=== PATIENT | female | born 1935 | race African-American/Black ===

== ENCOUNTER 2019-04-09 16:35 | Inpatient (IN) | payer MEDICARE, MEDICAID ==
[~2019-04-09] VITALS: Ht 162.6 cm; Wt 67.6 kg
[~2019-04-09 16:35] MED LIST: ACET-3161 GT; APIX2.5T; ATEN50TA PO; ATOR10TA69 PO; CARV6.2548 PO; FERR-63 PO; FURO-152 PO; METO-539 PO; METO5TAB7 PO; MULT-1146 PO; OLME40TA11 PO; POTA10TA15 PO; RIVA10TA PO
[2019-04-09] MEDS ORDERED: ACETAMINOPHEN 500MG TABLET PO ONE (21:30)
[2019-04-09] MEDS ORDERED: AMPICILLIN SOD/SULBACTAM NA 3 G in SODIUM CHLORIDE 0.9% 100 ML IV ONE (21:30)
[2019-04-09] MEDS ORDERED: MAGNESIUM/ALUMINUM HYDROXIDE/SIMETHICONE 30ML UDC PO PRN (23:15)
[2019-04-09] MEDS ORDERED: IPRATROPIUM/ALBUTEROL 0.5-3(2.5)MG/3ML NEB NEB PRN (23:15)
[2019-04-09] MEDS ORDERED: PIPERACILLIN/TAZ 3.375G PREMIX 50 ML IV SCH (23:15)
[2019-04-09] MEDS ORDERED: HYDROCODONE/ACETAMINOPHEN 5/325MG TABLET PO PRN (23:15)
[2019-04-09] MEDS ORDERED: ONDANSETRON HCL 4MG/2ML INJ IV PRN (23:15)
[2019-04-09] MEDS ORDERED: DOCUSATE SODIUM 100MG CAPSULE PO PRN (23:15)
[2019-04-09] MEDS ORDERED: CLONIDINE 0.1MG TABLET PO PRN (23:15)
[2019-04-09 23:48] LABS: HEMATOCRIT 24.4 % (36.0-48.0); HEMOGLOBIN 7.6 g/dL (12.0-16.0); MEAN CORPUSCULAR HEMOGLOBIN 28.2 pg (28.0-32.0); MEAN CORPUSCULAR VOLUME 90.8 fL (81.0-99.0); PLATELET 180 x1000/uL (130-400); RED BLOOD CELL COUNT 2.69 mill/uL (4.2-5.4); RED CELL DISTRIBUTION WIDTH 16.4 % (11.6-14.6)
[2019-04-09 23:55] LABS: CHLORIDE 118 mEq/L (98-107)
[2019-04-09 23:58] LABS: CLARITY URINE CLOUDY (CLEAR); COLOR URINE YELLOW (YELLOW); KETONES URINE NEGATIVE (NEGATIVE); LEUKOCYTE ESTERASE URINE TRACE (NEGATIVE); NITRITE URINE NEGATIVE (NEGATIVE); OCCULT BLOOD URINE 1+ (NEGATIVE); PROTEIN URINE 2+ (NEGATIVE); SPECIFIC GRAVITY URINE 1.013 (1.005-1.030); UROBILINOGEN URINE 0.2 E.U./dL (0.2-1.0)
[2019-04-10 03:00] VITALS: BP 112/70
[2019-04-10 03:28] VITALS: BP 112/70
[2019-04-10 08:00] VITALS: BP 123/62
[2019-04-10] MEDS: PIPERACILLIN/TAZOBACTAM 2.25 G in DEXTROSE 5% WATER 50 ML IV SCH ×3 (08:44→23:15)
[2019-04-10] MEDS ORDERED: ENOXAPARIN 30MG/0.3ML SYR SUBCUT SCH (09:00)
[2019-04-10 09:15] LABS: CREATINE KINASE MB FRACTION 1.1 ng/mL (0.5-3.6)
[2019-04-10] MEDS: ACETAMINOPHEN 325MG TABLET PO PRN ×3 (10:17→23:19)
[2019-04-10] MEDS: SODIUM CHLORIDE 0.45% 1,000 ML IV SCH (11:16)
[2019-04-10 11:35] LABS: BG BASE EXCESS -12.3 mmol/L (-2.0-2.0); BG CARBOXYHEMOGLOBIN 1.2 % (0.5-1.5); BG DEOXYHEMOGLOBIN 3.1 % (0.0-5.0); BG FRACTION INSPIRED OXYGEN 21; BG HCO3 ACT 13.1 mmol/L (22.0-26.0); BG METHEMOGLOBIN 0.3 % (0.0-1.5); BG OXYGEN SATURATION 96.9 % (92.0-98.5); BG OXYHEMOGLOBIN 95.4 % (94.0-97.0); BG PCO2 27.9 mmHg (35.0-45.0); BG PH 7.291 (7.350-7.450); BG PO2 107.7 mmHg (75.0-100.0); BG SAMPLE SITE RIGHT BRACHIAL; BG TOTAL HEMOGLOBIN 6.6 g/dL (12.0-18.0); BG VENT MODE ROOM AIR
[2019-04-10 12:00] VITALS: BP 106/50
[2019-04-10] MEDS: CITRIC ACID/SODIUM CITRATE SOLN 30ML UDC PO SCH ×2 (13:14→16:31)
[2019-04-10 14:11] LABS: CREATINE KINASE MB FRACTION 1.6 ng/mL (0.5-3.6)
[2019-04-10] MEDS ORDERED: BARIUM SULFATE 450ML ORAL SUSP PO SCH (14:15)
[2019-04-10 14:52] LABS: FOLIC ACID (FOLATE) SERUM 13.8 ng/mL (>5.38)
[2019-04-10 16:00] VITALS: BP 106/61
[2019-04-10 20:00] VITALS: BP 102/57
[2019-04-10] MEDS: CARVEDILOL 6.25 MG TABLET PO SCH (21:00)
[2019-04-10] MEDS: ATORVASTATIN CALCIUM 10MG TABLET PO SCH (21:18)
[2019-04-11] VITALS (8 sets, daily range): BP systolic 100–123; BP diastolic 51–74
[2019-04-11] MEDS: SODIUM CHLORIDE 0.45% 1,000 ML IV SCH (06:51)
[2019-04-11 07:08] LABS: BASOPHILS % 0.5 % (0.0-2.0); EOSINOPHILS % 0.8 % (0.0-5.0); HEMATOCRIT. 21.7 % (36.0-48.0); LYMPHOCYTES % 10.4 % (20.0-50.0); MEAN CORPUSCULAR HEMOGLOBIN 28.4 pg (28.0-32.0); MEAN CORPUSCULAR VOLUME 90.3 fL (81.0-99.0); MEAN PLATELET VOLUME 9.7 fl (7.4-10.4); MONOCYTES % 6.5 % (2.0-8.0); NEUTROPHILS % 81.8 % (40.0-76.0); PLATELET 181 x1000/uL (130-400); RED BLOOD CELL COUNT 2.41 mill/uL (4.2-5.4); RED CELL DISTRIBUTION WIDTH 16.3 % (11.6-14.6)
[2019-04-11 07:57] LABS: HEMOGLOBIN. 6.8 g/dL (12.0-16.0)
[2019-04-11] MEDS: PIPERACILLIN/TAZOBACTAM 2.25 G in DEXTROSE 5% WATER 50 ML IV SCH ×2 (08:43→16:34)
[2019-04-11] MEDS: CITRIC ACID/SODIUM CITRATE SOLN 30ML UDC PO SCH ×3 (08:43→16:31)
[2019-04-11] MEDS: CARVEDILOL 6.25 MG TABLET PO SCH ×2 (08:43→20:18)
[2019-04-11] MEDS ORDERED: LIDOCAINE HCL 2% JELLY 5ML TOP SCH (12:00)
[2019-04-11] MEDS: ACETAMINOPHEN 325MG TABLET PO PRN ×3 (12:08→21:17)
[2019-04-11 15:06] LABS: ANTI-NUCLEAR ANTIBODIES DIRECT Negative (Negative)
[2019-04-11] MEDS ORDERED: POTASSIUM CHLORIDE 20MEQ TABLET SR PO NR (17:00)
[2019-04-11] MEDS: ATORVASTATIN CALCIUM 10MG TABLET PO SCH (20:16)
[2019-04-12] VITALS: BP 123/63
[2019-04-12] MEDS: PIPERACILLIN/TAZOBACTAM 2.25 G in DEXTROSE 5% WATER 50 ML IV SCH ×3 (01:03→16:27)
[2019-04-12 04:00] VITALS: BP 107/67
[2019-04-12 06:54] LABS: BASOPHILS % 0.4 % (0.0-2.0); EOSINOPHILS % 0.9 % (0.0-5.0); HEMATOCRIT. 24.2 % (36.0-48.0); HEMOGLOBIN. 7.8 g/dL (12.0-16.0); LYMPHOCYTES % 10.9 % (20.0-50.0); MEAN CORPUSCULAR HEMOGLOBIN 28.6 pg (28.0-32.0); MEAN CORPUSCULAR VOLUME 88.9 fL (81.0-99.0); MEAN PLATELET VOLUME 9.5 fl (7.4-10.4); MONOCYTES % 7.4 % (2.0-8.0); NEUTROPHILS % 80.4 % (40.0-76.0); PLATELET 174 x1000/uL (130-400); RED BLOOD CELL COUNT 2.73 mill/uL (4.2-5.4); RED CELL DISTRIBUTION WIDTH 16.6 % (11.6-14.6)
[2019-04-12 08:00] VITALS: BP 119/84
[2019-04-12] MEDS: CITRIC ACID/SODIUM CITRATE SOLN 30ML UDC PO SCH ×3 (09:00→17:44)
[2019-04-12] MEDS: CARVEDILOL 6.25 MG TABLET PO SCH ×2 (09:21→20:08)
[2019-04-12] MEDS: ACETAMINOPHEN 325MG TABLET PO PRN ×2 (11:57→20:08)
[2019-04-12 12:00] VITALS: BP 113/52
[2019-04-12 16:00] VITALS: BP 124/79
[2019-04-12] MEDS ORDERED: LOPERAMIDE 2MG/15ML UDC PO PRN (17:15)
[2019-04-12] MEDS ORDERED: LOPERAMIDE HCL 2MG CAPSULE PO NR (17:15)
[2019-04-12 20:00] VITALS: BP 145/80
[2019-04-12] MEDS: ATORVASTATIN CALCIUM 10MG TABLET PO SCH (20:07)
[2019-04-12] MEDS ORDERED: LOPERAMIDE HCL 2MG CAPSULE PO PRN (22:00)
[2019-04-13] VITALS (10 sets, daily range): BP systolic 115–148; BP diastolic 57–79
[2019-04-13] MEDS: PIPERACILLIN/TAZOBACTAM 2.25 G in DEXTROSE 5% WATER 50 ML IV SCH ×4 (01:12→23:22)
[2019-04-13] MEDS: SODIUM CHLORIDE 0.45% 1,000 ML IV SCH ×3 (01:16→21:29)
[2019-04-13] MEDS ORDERED: LIDOCAINE HCL 1% 20ML VIAL (Pyxis) INJ ONE (07:52)
[2019-04-13] MEDS ORDERED: NORMAL SALINE 0.9% 10 ML SYR ONE (07:52)
[2019-04-13] MEDS ORDERED: BACITRACIN 50,000 UNITS/VIAL ONE (07:53)
[2019-04-13] MEDS ORDERED: BUPIVACAINE HCL 0.5% (5MG/ML) 50ML ONE (07:53)
[2019-04-13] MEDS ORDERED: FENTANYL CITRATE/PF 50MCG/ML 2ML VIAL ONE (07:59)
[2019-04-13] MEDS ORDERED: PROPOFOL 200MG/20ML VIAL IV ONE (07:59)
[2019-04-13] MEDS ORDERED: MIDAZOLAM HCL 2 MG/2 ML VIAL ONE ×2 (08:00→08:05)
[2019-04-13] MEDS ORDERED: METOCLOPRAMIDE HCL 10MG/2ML VIAL ONE (08:00)
[2019-04-13] MEDS ORDERED: SUCCINYLCHOLINE CHLORIDE 200MG/10ML IV ONE (08:00)
[2019-04-13] MEDS ORDERED: LIDOCAINE HCL/PF 1% 10 MG/ML 5ML VIAL ONE (08:00)
[2019-04-13] MEDS ORDERED: ONDANSETRON HCL 4MG/2ML INJ ONE (08:00)
[2019-04-13] MEDS ORDERED: GLYCOPYRROLATE 0.2 MG/ML 2ML VIAL ONE (08:00)
[2019-04-13] MEDS ORDERED: SODIUM CHLORIDE 0.9% 1,000 ML IV ONE (08:53)
[2019-04-13] MEDS ORDERED: ONDANSETRON HCL 4MG/2ML INJ IV PRN (09:00)
[2019-04-13] MEDS ORDERED: HYDROMORPHONE HCL/PF 2MG/ML CPJ IV PRN (09:00)
[2019-04-13] MEDS ORDERED: MORPHINE SULFATE 2 MG/ML CPJ (NOT FOR IM USE) IV PRN (09:00)
[2019-04-13 09:30] LABS: BASOPHILS % 0.5 % (0.0-2.0); EOSINOPHILS % 1.1 % (0.0-5.0); HEMATOCRIT. 31.4 % (36.0-48.0); HEMOGLOBIN. 9.9 g/dL (12.0-16.0); LYMPHOCYTES % 12.9 % (20.0-50.0); MEAN CORPUSCULAR HEMOGLOBIN 28.3 pg (28.0-32.0); MEAN CORPUSCULAR VOLUME 89.8 fL (81.0-99.0); MEAN PLATELET VOLUME 9.9 fl (7.4-10.4); NEUTROPHILS % 78.5 % (40.0-76.0); PLATELET 185 x1000/uL (130-400); RED CELL DISTRIBUTION WIDTH 16.8 % (11.6-14.6)
[2019-04-13] MEDS: CITRIC ACID/SODIUM CITRATE SOLN 30ML UDC PO SCH ×3 (10:42→17:00)
[2019-04-13] MEDS: CARVEDILOL 6.25 MG TABLET PO SCH ×2 (10:44→21:28)
[2019-04-13] MEDS: ACETAMINOPHEN 325MG TABLET PO PRN ×2 (11:55→18:58)
[2019-04-13 12:28] LABS: HEPATITIS B SURFACE ANTIGEN NEGATIVE
[2019-04-13] MEDS: ATORVASTATIN CALCIUM 10MG TABLET PO SCH (21:28)
[2019-04-14] VITALS: BP 121/70
[2019-04-14 04:00] VITALS: BP 116/64
[2019-04-14 08:00] VITALS: BP 139/59
[2019-04-14] MEDS: PIPERACILLIN/TAZOBACTAM 2.25 G in DEXTROSE 5% WATER 50 ML IV SCH (09:13)
[2019-04-14] MEDS: CARVEDILOL 6.25 MG TABLET PO SCH ×2 (09:13→22:33)
[2019-04-14] MEDS: CITRIC ACID/SODIUM CITRATE SOLN 30ML UDC PO SCH ×3 (09:14→17:00)
[2019-04-14] MEDS: ACETAMINOPHEN 325MG TABLET PO PRN (09:15)
[2019-04-14] MEDS ORDERED: MAGNESIUM 4 G PREMIX 100 ML IV SCH (10:00)
[2019-04-14] MEDS ORDERED: SODIUM BICARBONATE 100 MEQ in SODIUM CHLORIDE 0.45% 900 ML IV SCH (10:00)
[2019-04-14 12:00] VITALS: BP 134/78
[2019-04-14] MEDS ORDERED: APIXABAN 5 MG TABLET PO SCH (12:00)
[2019-04-14 12:41] LABS: BASOPHILS % 0.5 % (0.0-2.0); EOSINOPHILS % 0.8 % (0.0-5.0); HEMATOCRIT. 32.9 % (36.0-48.0); HEMOGLOBIN. 10.5 g/dL (12.0-16.0); LYMPHOCYTES % 8.1 % (20.0-50.0); MEAN CORPUSCULAR HEMOGLOBIN 28.5 pg (28.0-32.0); MEAN CORPUSCULAR VOLUME 89.6 fL (81.0-99.0); MEAN PLATELET VOLUME 8.9 fl (7.4-10.4); MONOCYTES % 6.1 % (2.0-8.0); NEUTROPHILS % 84.5 % (40.0-76.0); PLATELET 162 x1000/uL (130-400); RED BLOOD CELL COUNT 3.68 mill/uL (4.2-5.4); RED CELL DISTRIBUTION WIDTH 17.1 % (11.6-14.6)
[2019-04-14 15:50] VITALS: BP 138/72
[2019-04-14 20:00] VITALS: BP 128/77
[2019-04-14] MEDS ORDERED: SUCRALFATE 1 G/10 ML UDC PO SCH (21:00)
[2019-04-14] MEDS ORDERED: METOPROLOL TARTRATE 25MG TABLET PO SCH (21:00)
[2019-04-14] MEDS: APIXABAN 2.5 MG TABLET PO SCH (22:33)
[2019-04-14] MEDS: ATORVASTATIN CALCIUM 10MG TABLET PO SCH (22:33)
[2019-04-15] VITALS: BP 137/52
[2019-04-15 04:00] VITALS: BP 134/76
[2019-04-15] MEDS: ACETAMINOPHEN 325MG TABLET PO PRN ×3 (06:23→23:31)
[2019-04-15 08:10] VITALS: BP 144/76
[2019-04-15 09:10] LABS: BASOPHILS % 0.7 % (0.0-2.0); EOSINOPHILS % 1.2 % (0.0-5.0); HEMATOCRIT. 30.3 % (36.0-48.0); HEMOGLOBIN. 9.9 g/dL (12.0-16.0); LYMPHOCYTES % 10.8 % (20.0-50.0); MEAN CORPUSCULAR HEMOGLOBIN 28.6 pg (28.0-32.0); MEAN CORPUSCULAR VOLUME 87.1 fL (81.0-99.0); MEAN PLATELET VOLUME 9.5 fl (7.4-10.4); MONOCYTES % 7.8 % (2.0-8.0); NEUTROPHILS % 79.5 % (40.0-76.0); PLATELET 169 x1000/uL (130-400); RED BLOOD CELL COUNT 3.48 mill/uL (4.2-5.4)
[2019-04-15 09:38] LABS: PHOSPHORUS 5.7 mg/dL (2.5-4.9)
[2019-04-15] MEDS: SODIUM BICARBONATE 650 MG TABLET PO SCH ×3 (10:05→17:29)
[2019-04-15] MEDS: APIXABAN 2.5 MG TABLET PO SCH (10:05)
[2019-04-15] MEDS: CARVEDILOL 6.25 MG TABLET PO SCH ×2 (10:06→21:42)
[2019-04-15 12:09] VITALS: BP 140/75
[2019-04-15 20:00] VITALS: BP 115/73
[2019-04-15 21:29] LABS: HEMATOCRIT 26.9 % (36.0-48.0); HEMOGLOBIN 8.6 g/dL (12.0-16.0)
[2019-04-15] MEDS: ATORVASTATIN CALCIUM 10MG TABLET PO SCH (21:42)
[2019-04-15] MEDS ORDERED: SILVER NITRATE APPLICATOR STICK TOP NR (22:30)
[2019-04-15] MEDS ORDERED: SKIN ADHESIVE 0.7 GM EA TOP NR (22:30)
[2019-04-15] MEDS ORDERED: [UNRECOGNIZED DRUG - SUPPLY] TOP NR (23:00)
[2019-04-16] VITALS (9 sets, daily range): BP systolic 112–161; BP diastolic 58–81
[2019-04-16 07:17] LABS: HEMATOCRIT 22.3 % (36.0-48.0); HEMOGLOBIN 7.2 g/dL (12.0-16.0)
[2019-04-16] MEDS: SODIUM BICARBONATE 650 MG TABLET PO SCH ×3 (09:01→17:16)
[2019-04-16] MEDS: CARVEDILOL 6.25 MG TABLET PO SCH ×2 (09:02→20:59)
[2019-04-16 09:07] LABS: INR 1.1; PARTIAL THROMBOPLASTIN TIME 37.2 sec (23.4-31.0); PROTHROMBIN TIME 11.7 sec (9.6-11.0)
[2019-04-16] MEDS ORDERED: SODIUM BICARBONATE 4% (2.4MEQ) 5ML VIAL IV ONE (11:21)
[2019-04-16] MEDS ORDERED: LIDOCAINE HCL 1% 20ML VIAL (Pyxis) INJ ONE (11:21)
[2019-04-16] MEDS: ATORVASTATIN CALCIUM 10MG TABLET PO SCH (20:59)
[2019-04-16] MEDS: ACETAMINOPHEN 325MG TABLET PO PRN (21:51)
[2019-04-17] VITALS (7 sets, daily range): BP systolic 109–154; BP diastolic 50–85
[2019-04-17 06:47] LABS: BASOPHILS % 0.5 % (0.0-2.0); EOSINOPHILS % 1.2 % (0.0-5.0); HEMATOCRIT. 23.3 % (36.0-48.0); HEMOGLOBIN. 7.6 g/dL (12.0-16.0); LYMPHOCYTES % 13.6 % (20.0-50.0); MEAN CORPUSCULAR HEMOGLOBIN 28.9 pg (28.0-32.0); MEAN CORPUSCULAR VOLUME 88.3 fL (81.0-99.0); MEAN PLATELET VOLUME 10.1 fl (7.4-10.4); MONOCYTES % 7.7 % (2.0-8.0); PLATELET 131 x1000/uL (130-400); RED BLOOD CELL COUNT 2.63 mill/uL (4.2-5.4); RED CELL DISTRIBUTION WIDTH 16.2 % (11.6-14.6)
[2019-04-17] MEDS: SODIUM BICARBONATE 650 MG TABLET PO SCH ×4 (07:50→16:04)
[2019-04-17] MEDS: CARVEDILOL 6.25 MG TABLET PO SCH ×3 (09:00→21:00)
[2019-04-17] MEDS ORDERED: BUPIVACAINE HCL 0.5% (5MG/ML) 50ML ONE (14:38)
[2019-04-17] MEDS ORDERED: LIDOCAINE HCL 1% 20ML VIAL (Pyxis) INJ ONE ×2 (14:38→18:18)
[2019-04-17] MEDS ORDERED: NORMAL SALINE 0.9% 10 ML SYR ONE ×2 (14:38→18:18)
[2019-04-17] MEDS ORDERED: BACITRACIN 50,000 UNITS/VIAL ONE ×2 (14:39→18:18)
[2019-04-17] MEDS ORDERED: BUPIVACAINE HCL/PF 0.5% (5MG/ML) 10ML ONE (18:18)
[2019-04-17] MEDS ORDERED: BACITRACIN 15GM TUBE TOP ONE (18:18)
[2019-04-17] MEDS: ACETAMINOPHEN 325MG TABLET PO PRN (20:46)
[2019-04-17] MEDS: ATORVASTATIN CALCIUM 10MG TABLET PO SCH (21:00)
[2019-04-17] MEDS ORDERED: KETAMINE HCL 50 MG/ML 10ML ONE (23:23)
[2019-04-17] MEDS ORDERED: MIDAZOLAM HCL 2 MG/2 ML VIAL ONE (23:38)
[2019-04-17] MEDS ORDERED: FENTANYL CITRATE/PF 50MCG/ML 2ML VIAL ONE (23:59)
[2019-04-18] MEDS ORDERED: DIPHENHYDRAMINE 50MG/ML VIAL ONE
[2019-04-18] MEDS ORDERED: ESMOLOL HCL 10MG/ML 10ML VIAL IV ONE (00:14)
[2019-04-18 01:45] VITALS: BP 152/90
[2019-04-18 04:00] VITALS: BP 151/80
[2019-04-18 04:57] LABS: INR 1.1; PROTHROMBIN TIME 11.5 sec (9.6-11.0)
[2019-04-18 08:31] VITALS: BP 144/70
[2019-04-18] MEDS: SODIUM BICARBONATE 650 MG TABLET PO SCH ×3 (09:16→17:50)
[2019-04-18] MEDS: CARVEDILOL 6.25 MG TABLET PO SCH ×2 (09:16→21:47)
[2019-04-18 11:04] LABS: BASOPHILS % 0.6 % (0.0-2.0); EOSINOPHILS % 1.4 % (0.0-5.0); HEMATOCRIT. 27.7 % (36.0-48.0); HEMOGLOBIN. 9.1 g/dL (12.0-16.0); LYMPHOCYTES % 10.9 % (20.0-50.0); MEAN CORPUSCULAR HEMOGLOBIN 28.4 pg (28.0-32.0); MEAN CORPUSCULAR VOLUME 86.9 fL (81.0-99.0); MEAN PLATELET VOLUME 9.4 fl (7.4-10.4); MONOCYTES % 7.6 % (2.0-8.0); NEUTROPHILS % 79.5 % (40.0-76.0); PLATELET 129 x1000/uL (130-400); RED BLOOD CELL COUNT 3.19 mill/uL (4.2-5.4); RED CELL DISTRIBUTION WIDTH 17.4 % (11.6-14.6)
[2019-04-18 12:00] VITALS: BP 153/86
[2019-04-18] MEDS ORDERED: BACITRACIN 50,000 UNITS/VIAL ONE (14:24)
[2019-04-18] MEDS ORDERED: BUPIVACAINE HCL/PF 0.5% (5MG/ML) 10ML ONE (14:24)
[2019-04-18] MEDS ORDERED: LIDOCAINE HCL 1% 20ML VIAL (Pyxis) INJ ONE (14:24)
[2019-04-18] MEDS ORDERED: BUPIVACAINE HCL/EPINEPHRINE/PF 0.5%/0.0005 10ML ONE (14:24)
[2019-04-18] MEDS ORDERED: PROPOFOL 200MG/20ML VIAL IV ONE (15:21)
[2019-04-18 16:00] VITALS: BP 146/69
[2019-04-18] MEDS ORDERED: MORPHINE SULFATE 2 MG/ML CPJ (NOT FOR IM USE) IV PRN (16:30)
[2019-04-18 20:41] VITALS: BP 152/76
[2019-04-18] MEDS: ATORVASTATIN CALCIUM 10MG TABLET PO SCH (21:47)
[2019-04-18] MEDS: ACETAMINOPHEN 325MG TABLET PO PRN (21:48)
[2019-04-19 00:37] VITALS: BP 148/78
[2019-04-19 04:00] VITALS: BP 139/62
[2019-04-19 08:00] VITALS: BP 161/74
[2019-04-19 09:01] LABS: BASOPHILS % 0.7 % (0.0-2.0); EOSINOPHILS % 1.4 % (0.0-5.0); HEMATOCRIT. 25.7 % (36.0-48.0); HEMOGLOBIN. 8.2 g/dL (12.0-16.0); LYMPHOCYTES % 12.8 % (20.0-50.0); MEAN CORPUSCULAR HEMOGLOBIN 27.9 pg (28.0-32.0); MEAN CORPUSCULAR VOLUME 87.3 fL (81.0-99.0); MEAN PLATELET VOLUME 9.4 fl (7.4-10.4); MONOCYTES % 8.4 % (2.0-8.0); NEUTROPHILS % 76.7 % (40.0-76.0); PLATELET 102 x1000/uL (130-400); RED BLOOD CELL COUNT 2.94 mill/uL (4.2-5.4); RED CELL DISTRIBUTION WIDTH 17.7 % (11.6-14.6)
[2019-04-19] MEDS: CARVEDILOL 6.25 MG TABLET PO SCH ×2 (09:01→21:01)
[2019-04-19] MEDS: SODIUM BICARBONATE 650 MG TABLET PO SCH ×3 (09:01→17:36)
[2019-04-19] MEDS: ACETAMINOPHEN 325MG TABLET PO PRN ×2 (09:07→17:40)
[2019-04-19 11:59] VITALS: BP 150/80
[2019-04-19 16:01] VITALS: BP 154/74
[2019-04-19] MEDS: ALLOPURINOL 100 MG TABLET PO SCH (17:36)
[2019-04-19 20:00] VITALS: BP 129/64
[2019-04-19] MEDS: ATORVASTATIN CALCIUM 10MG TABLET PO SCH (21:01)
[2019-04-20] VITALS: BP 126/55
[2019-04-20 04:42] VITALS: BP 152/64
[2019-04-20] MEDS: ACETAMINOPHEN 325MG TABLET PO PRN ×2 (05:27→12:26)
[2019-04-20 06:48] LABS: BASOPHILS % 0.6 % (0.0-2.0); EOSINOPHILS % 2.1 % (0.0-5.0); HEMATOCRIT. 25.1 % (36.0-48.0); HEMOGLOBIN. 8.2 g/dL (12.0-16.0); LYMPHOCYTES % 14.4 % (20.0-50.0); MEAN CORPUSCULAR HEMOGLOBIN 28.3 pg (28.0-32.0); MEAN CORPUSCULAR VOLUME 86.5 fL (81.0-99.0); MEAN PLATELET VOLUME 9.5 fl (7.4-10.4); MONOCYTES % 8.8 % (2.0-8.0); NEUTROPHILS % 74.1 % (40.0-76.0); PLATELET 105 x1000/uL (130-400); RED CELL DISTRIBUTION WIDTH 17.9 % (11.6-14.6)
[2019-04-20 08:00] VITALS: BP 143/78
[2019-04-20 09:10] VITALS: BP 143/78
[2019-04-20] MEDS: ALLOPURINOL 100 MG TABLET PO SCH (09:35)
[2019-04-20] MEDS: CARVEDILOL 6.25 MG TABLET PO SCH (09:35)
[2019-04-20] MEDS: SODIUM BICARBONATE 650 MG TABLET PO SCH ×2 (09:35→12:26)
[2019-04-20 12:00] VITALS: BP 123/71
[2019-04-20] MEDS ORDERED: SODI650T PO (13:08)
[2019-04-20 15:51] VITALS: BP 123/71
== END 2019-04-20 18:50 | disposition home or self-care (01) | DRG 361 ==
LOC: ER 16:35 → 6EST 21:57 → ENRESERV 22:49 → 6WST 04-17 18:26
PROVIDERS: ADMIT Internal Medicine; ATTEND Internal Medicine
PROC: 30233N1 Transfusion of Nonautologous Red Blood Cells into Peripheral Vein, Percutaneous Approach (ICD-10-PCS; 2019-04-11)
PROC: 0HB6XZZ Excision of Back Skin, External Approach (ICD-10-PCS; 2019-04-13)
PROC: 02HV33Z Insertion of Infusion Device into Superior Vena Cava, Percutaneous Approach (ICD-10-PCS; 2019-04-16)
PROC: B548ZZA Ultrasonography of Superior Vena Cava, Guidance (ICD-10-PCS; 2019-04-16)
PROC: B5181ZA Fluoroscopy of Superior Vena Cava using Low Osmolar Contrast, Guidance (ICD-10-PCS; 2019-04-16)
PROC: 0Y300ZZ Control Bleeding in Right Buttock, Open Approach (ICD-10-PCS; principal; 2019-04-17)
PROC: 0JQ90ZZ Repair Buttock Subcutaneous Tissue and Fascia, Open Approach (ICD-10-PCS; 2019-04-18)
DX: L89.154 Pressure ulcer of sacral region, stage 4 (principal); E43 Unspecified severe protein-calorie malnutrition; I13.2 Hypertensive heart and chronic kidney disease with heart failure and with stage 5 chronic kidney disease, or end stage renal disease; N17.9 Acute kidney failure, unspecified; E87.2 Acidosis; I27.21 Secondary pulmonary arterial hypertension; I42.0 Dilated cardiomyopathy; E83.42 Hypomagnesemia; I48.21 Permanent atrial fibrillation; E86.9 Volume depletion, unspecified; K50.90 Crohn's disease, unspecified, without complications; I50.42 Chronic combined systolic (congestive) and diastolic (congestive) heart failure; D63.8 Anemia in other chronic diseases classified elsewhere; E87.6 Hypokalemia; N18.6 End stage renal disease; M1A.9XX0 Chronic gout, unspecified, without tophus (tophi); E78.5 Hyperlipidemia, unspecified; I73.9 Peripheral vascular disease, unspecified; R26.9 Unspecified abnormalities of gait and mobility; B96.20 Unspecified Escherichia coli [E. coli] as the cause of diseases classified elsewhere; R80.9 Proteinuria, unspecified; Z95.810 Presence of automatic (implantable) cardiac defibrillator; Z86.718 Personal history of other venous thrombosis and embolism; Z79.01 Long term (current) use of anticoagulants; Z79.899 Other long term (current) drug therapy; Z74.01 Bed confinement status; Z82.49 Family history of ischemic heart disease and other diseases of the circulatory system; Z68.25 Body mass index [BMI] 25.0-25.9, adult; Z99.2 Dependence on renal dialysis
CPT/HCPCS: 36415; 36573; 36600; 71045; 72192; 76770; 76937; 80048; 80053; 80061; 81003; 82270; 82375; 82550; 82553; 82575; 82607; 82728; 82746; 82805; 83036; 83540; 83550; 83735; 84100; 84134; 84145; 84156; 84443; 84484; 84550; 85014; 85018; 85025; 85027; 85384; 85651; 86038; 86141; 86160; 86803; 86850; 86900; 86920; 87070; 87075; 87077; 87186; 87340; 87493; 93005; 93306; 93970; 96365; 97161; 97162; 97164; 97166; 97530; 99285; C1725; C1893; J0171; J0295; J0330; J1200; J1650; J2250; J2405; J2543; J2704; J2765; J3010; J3475; J3490; J7040; J7050; J7060; P9016; A4315

== ENCOUNTER 2021-10-09 13:21 | Inpatient (IN) | payer MEDICARE, MEDICAID ==
[~2021-10-09] VITALS: Ht 162.6 cm; Wt 56.7 kg
[~2021-10-09 13:21] MED LIST changes: -APIX2.5T; -ATEN50TA PO; -FERR-63 PO; -FURO-152 PO; -METO-539 PO; -METO5TAB7 PO; -MULT-1146 PO; -OLME40TA11 PO; -POTA10TA15 PO; -RIVA10TA PO; +SODI650T PO
[2021-10-09 18:44] LABS: HEMATOCRIT. 33.5 % (36.0-48.0); HEMOGLOBIN. 10.5 g/dL (12.0-16.0); MEAN CORPUSCULAR HEMOGLOBIN 31.5 pg (28.0-32.0); MEAN CORPUSCULAR VOLUME 100.5 fL (81.0-99.0); MEAN PLATELET VOLUME 11.3 fl (7.4-10.4); PLATELET 95 x1000/uL (130-400); RED BLOOD CELL COUNT 3.34 mill/uL (4.2-5.4); RED CELL DISTRIBUTION WIDTH 15.8 % (11.6-14.6)
[2021-10-09 21:34] LABS: PLATELET ESTIMATE DECREASED
[2021-10-10 08:25] VITALS: BP 107/62
[2021-10-10] MEDS ORDERED: KETO15CR2 TP (10:20)
[2021-10-10] MEDS ORDERED: ONDANSETRON HCL 4MG/2ML INJ IV PRN (11:00)
[2021-10-10 12:00] VITALS: BP 141/67
[2021-10-10 16:00] VITALS: BP 95/63
[2021-10-10 19:55] LABS: HEPATITIS B SURFACE ANTIGEN NEGATIVE
[2021-10-10 20:00] VITALS: BP 125/71
[2021-10-10] MEDS: ACETAMINOPHEN 325MG TABLET PO PRN (22:47)
[2021-10-11] VITALS (7 sets, daily range): BP systolic 92–139; BP diastolic 45–95
[2021-10-11 07:12] LABS: HEMATOCRIT. 32.3 % (36.0-48.0); HEMOGLOBIN. 10.1 g/dL (12.0-16.0); MEAN CORPUSCULAR HEMOGLOBIN 31.4 pg (28.0-32.0); MEAN CORPUSCULAR VOLUME 100.2 fL (81.0-99.0); MEAN PLATELET VOLUME 12.6 fl (7.4-10.4); PLATELET 60 x1000/uL (130-400); RED BLOOD CELL COUNT 3.22 mill/uL (4.2-5.4); RED CELL DISTRIBUTION WIDTH 15.1 % (11.6-14.6)
[2021-10-11] MEDS ORDERED: THROMBIN (BOVINE) 5000 UNITS/VIAL TOP ONE (09:24)
[2021-10-11] MEDS ORDERED: POLYMYXIN B SULFATE 500000 UNITS/VIAL ONE (09:24)
[2021-10-11] MEDS ORDERED: BACITRACIN 15GM TUBE TOP ONE (09:25)
[2021-10-11] MEDS ORDERED: LIDOCAINE HCL 1% 50ML VIAL (10MG/ML) ONE (09:25)
[2021-10-11] MEDS ORDERED: BUPIVACAINE HCL/PF 0.5% (5MG/ML) 10ML ONE (09:26)
[2021-10-11] MEDS ORDERED: HEPARIN SODIUM 1,000 UNIT/1ML VIAL IV ONE (09:26)
[2021-10-11] MEDS ORDERED: ONDANSETRON HCL 4MG/2ML INJ ONE (10:22)
[2021-10-11] MEDS ORDERED: DEXAMETHASONE 4MG/ML 1ML VIAL ONE (10:22)
[2021-10-11] MEDS ORDERED: ETOMIDATE 2MG/ML 10ML VIAL IV ONE (10:22)
[2021-10-11] MEDS ORDERED: MIDAZOLAM HCL 2 MG/2 ML VIAL ONE (10:24)
[2021-10-11] MEDS ORDERED: FENTANYL CITRATE/PF 50MCG/ML 2ML VIAL ONE (10:24)
[2021-10-11] MEDS ORDERED: PROPOFOL 200MG/20ML VIAL IV ONE (10:50)
[2021-10-11] MEDS ORDERED: NALOXONE HCL 0.4MG/ML VIAL IV PRN (11:30)
[2021-10-11] MEDS ORDERED: LABETALOL 5MG/ML SYR 20 MG/4 ML SYRINGE IV PRN (11:30)
[2021-10-11] MEDS ORDERED: HYDROMORPHONE HCL/PF 2MG/ML CPJ IV PRN (11:30)
[2021-10-11] MEDS ORDERED: ONDANSETRON HCL 4MG/2ML INJ IV PRN (11:30)
[2021-10-11] MEDS ORDERED: MEPERIDINE HCL/PF 25MG/ML CPJ IV PRN (11:30)
[2021-10-11] MEDS: ACETAMINOPHEN 325MG TABLET PO PRN (22:13)
[2021-10-12] VITALS: BP 96/52
[2021-10-12 04:00] VITALS: BP 95/42
[2021-10-12 05:33] LABS: PLATELET ESTIMATE MARKEDLY DECREASED
[2021-10-12 08:00] VITALS: BP 98/56
[2021-10-12 12:00] VITALS: BP 103/44
[2021-10-12 13:06] VITALS: BP 103/44
== END 2021-10-12 16:15 | disposition home health service (06) | DRG 182 ==
LOC: ER 14:05 → MICUSO 18:11 → CANRESERV 21:04 → ENRESERV 21:04 → 6WST 10-10 07:20
PROVIDERS: ADMIT Internal Medicine Nephrology; ATTEND Internal Medicine Nephrology
PROC: 05QY0ZZ Repair Upper Vein, Open Approach (ICD-10-PCS; principal; 2021-10-11)
PROC: 03QY0ZZ Repair Upper Artery, Open Approach (ICD-10-PCS; 2021-10-11)
DX: T82.838A Hemorrhage due to vascular prosthetic devices, implants and grafts, initial encounter (principal); I13.2 Hypertensive heart and chronic kidney disease with heart failure and with stage 5 chronic kidney disease, or end stage renal disease; D69.6 Thrombocytopenia, unspecified; N18.6 End stage renal disease; E83.51 Hypocalcemia; D62 Acute posthemorrhagic anemia; T82.898A Other specified complication of vascular prosthetic devices, implants and grafts, initial encounter; I50.9 Heart failure, unspecified; Z20.822 Contact with and (suspected) exposure to COVID-19; Y83.2 Surgical operation with anastomosis, bypass or graft as the cause of abnormal reaction of the patient, or of later complication, without mention of misadventure at the time of the procedure; Z99.2 Dependence on renal dialysis; Y92.89 Other specified places as the place of occurrence of the external cause
CPT/HCPCS: 36415; 80048; 85025; 86705; 86709; 86803; 87340; 87426; 93971; 99285; J1100; J1644; J2250; J2405; J2704; J3010; J3490; J7030